=== PATIENT | female | born 1950 | race Caucasian/White ===

== ENCOUNTER 2024-01-05 11:31 | Day surgery (SDC) | payer OTHER ==
[~2024-01-05] VITALS: Ht 160 cm; Wt 79.6 kg
[2024-01-05] MEDS ORDERED: THYR60 (12:26)
[2024-01-05] MEDS ORDERED: OMEP20ER (12:26)
[2024-01-05] MEDS ORDERED: Lactated Ringer's 1,000 ML IV ONE (13:01)
[2024-01-05] MEDS ORDERED: propofoL 50 ML IV ONE ×2 (13:42→13:46)
== END 2024-01-05 15:00 | disposition home or self-care (01) ==
LOC: ORSCSDS 11:31
PROVIDERS: Internal Medicine Gastroenterology
PROC: 0DB78ZX Excision of Stomach, Pylorus, Via Natural or Artificial Opening Endoscopic, Diagnostic (ICD-10-PCS; principal; 2024-01-05 13:00)
PROC: 0DJD8ZZ Inspection of Lower Intestinal Tract, Via Natural or Artificial Opening Endoscopic (ICD-10-PCS; principal; 2024-01-05 13:00)
DX: K62.5 Hemorrhage of anus and rectum (principal); R13.10 Dysphagia, unspecified; K21.9 Gastro-esophageal reflux disease without esophagitis; K29.70 Gastritis, unspecified, without bleeding; K31.84 Gastroparesis; K57.30 Diverticulosis of large intestine without perforation or abscess without bleeding; K59.00 Constipation, unspecified; G47.33 Obstructive sleep apnea (adult) (pediatric); Z79.899 Other long term (current) drug therapy; Z68.33 Body mass index [BMI] 33.0-33.9, adult
CPT/HCPCS: 88305; 88342; J2704